=== PATIENT | female | born 1955 | race Caucasian/White ===

== ENCOUNTER 2016-12-28 00:52 | Emergency (ER) | payer MEDICARE, BC ==
[~2016-12-28] VITALS: Ht 165.1 cm; Wt 106.6 kg
[~2016-12-28 00:52] MED LIST: ASPI-630 PO; BUDE10.2 IH; GLUC1TAB26 PO; INSU100I13 SQ; LISI10TA2 PO; LORA10TA68 PO; MELO15TA23 PO; METF500T4 PO; MULT-208 PO; NIAC500T PO; ZAFI10TA5 PO
[2016-12-28 02:30] LABS: BILIRUBIN,URINE NEGATIVE (NEG); GLUCOSE,URINE NEGATIVE (NEG); NITRITE,URINE POSITIVE (NEG); PH,URINE 8.5; PROTEIN,URINE 100 mg/dL (NEG-TRACE); UROBILINOGEN,URINE 0.2 mg/dL (0.2 mg/dL)
[2016-12-28 02:44] LABS: BACTERIA,URINE MANY /HPF (0-FEW); RBC,URINE OCC /HPF (0-2); SQUAMOUS EPITHELIAL CELL,UR OCC /LPF
[2016-12-28] MEDS ORDERED: IV NORMAL SALINE 1000ML BAG 1,000 ML IV SCH (02:46)
[2016-12-28 02:55] LABS: BASO # 0.1 x10^3/uL (0.0-0.2); BASO % 1 % (0-3); EOS % 5 % (0-3); LYMPH # 0.8 x10^3/uL (1.0-4.8); LYMPH % 9 % (24-48); MEAN CORPUSCULAR HEMOGLOBIN 28 pg (25-35); MEAN CORPUSCULAR HGB CONC 32 g/dL (31-37); MEAN CORPUSCULAR VOLUME 86 fL (79-100); MONO % 12 % (0-9); NEUT % 74 % (31-73); PLATELET COUNT 294 x10^3/uL (140-400); RED BLOOD COUNT 4.29 x10^6/uL (3.50-5.40); RED CELL DISTRIBUTION WIDTH 16.4 % (11.5-14.5); WHITE BLOOD COUNT 9.4 x10^3/uL (4.0-11.0)
[2016-12-28] MEDS ORDERED: fentaNYL PF VIAL 100 MCG/2 ML VIAL IV PRN (03:00)
[2016-12-28 03:04] LABS: CALCIUM 9.3 mg/dL (8.5-10.1); CREATININE 1.2 mg/dL (0.6-1.0); GFR 45.8
[2016-12-28 03:10] LABS: ALBUMIN 3.3 g/dL (3.4-5.0); ALBUMIN/GLOBULIN RATIO 0.5 (1.0-1.7); TOTAL BILIRUBIN 0.3 mg/dL (0.2-1.0); TOTAL PROTEIN 9.4 g/dL (6.4-8.2)
[2016-12-28] MEDS ORDERED: ONDANSETRON PF 4 MG/2 ML VIAL. IV ONE (03:15)
--- NOTE | 2016-12-28 04:11 | RAD ---
PQRS Compliance Statement: One or more of the following individualized dose reduction techniques were utilized for this examination: 1. Automated exposure control 2. Adjustment of the mA and/or kV according to patient size 3. Use of iterative reconstruction technique CT ABDOMEN PELVIS WO CONTRAST Clinical Indication: RIGHT FLANK PAIN, HX OF RENAL STONES Comparison: None. Technique: Helical CT imaging of the abdomen and pelvis is performed without IV or oral contrast. Findings: There are groundglass opacities in the lung bases with mosaic attenuation pattern. Common etiologies small airways disease. Mild scarring or atelectasis and tiny calcified granulomas in the left lower lobe. Coronary artery disease. Cardiac size normal. Cholelithiasis. Liver is homogeneous. Spleen, pancreas, adrenal glands, and abdominal aorta caliber are normal. The left kidney contains a 3 mm nonobstructing calculus in the lower pole. There is no hydronephrosis. There is a 4 mm calculus in the lower pole of the right kidney. There is moderate to severe right hydroureteronephrosis secondary to a 7 x 4 mm calculus at the right ureterovesicular junction, image 175. No urinary bladder wall thickening. No obvious abnormality of the stomach. No dilated small bowel. There are a few sigmoid colon diverticula without inflammation. The appendix is normal. No colon wall thickening. There is mild retroperitoneal adenopathy. Uterus and ovaries unremarkable. No pelvic free fluid. Bilateral inguinal lymph nodes may be reactive. Chronic appearing compression fracture at the inferior endplate of T12. Posterior endplate spurring at T12/L1 does not contribute to high-grade central canal stenosis. There is degenerative spondylosis in the lumbar spine. IMPRESSION: 1. Moderate to severe right obstructive uropathy secondary to a 7 x 4 mm calculus at the right ureterovesicular junction. 2. Nonobstructing bilateral renal calculi. 3. Cholelithiasis. 4. Mild retroperitoneal adenopathy. Etiology is uncertain. Electronically signed by: Tin Fong MD (12/28/2016 4:08 AM) [facility]
[2016-12-28 05:43] VITALS: BP 147/76
--- NOTE | 2016-12-28 07:41 | RAD ---
Indication shortness of air. A single view of the chest was obtained. No prior imaging of the chest is available. Heart size is at the upper limits of normal. There is no gross congestive heart failure. No focal infiltrate is seen. An acute finding is not apparent on plain film. IMPRESSION: No acute or focal process seen in the chest
--- NOTE | 2016-12-28 08:02 | ED.ADGEN ---
Past Medical History Past Medical History: Asthma, Diabetes-Type II, High Cholesterol, Hypertension , Kidney Stone, Other Additional Past Medical Histor: T12 fracture, chronic back pain Past Surgical History: Other Additional Past Surgical Histo: wrist, sinus Alcohol Use: None Drug Use: None Adult General Chief Complaint Chief Complaint: FLANK PAIN HPI HPI Patient is a 61 year old man, history of type 2 diabetes mellitus, hypertension , chronic back pain, recurrent renal calculi, who presents emergency Department with complaint of right-sided flank and abdominal pain that began yesterday, associated with nausea and vomiting, which she states is consistent with her previous episodes of renal calculi. Patient states that previously she is unable to pass her calculi without intervention. States that she has been experiencing some discomfort and some hesitancy with urination today, denies any gross blood, any injuries, any chest pain, shortness breath, any fevers or chills. Patient noted to be hypoxic upon arrival to the emergency department, oxygen saturation of 89% room air, patient is not a history of hypoxemia denies any shortness of breath. Patient was placed 2 L nasal cannula, denies any cough , any recent travel or surgery, or other concerning findings. No swelling extremities. Review of Systems Review of Systems Constitutional: Denies fever or chills. [] Eyes: Denies change in visual acuity. [] HENT: Denies nasal congestion or sore throat. [] Respiratory: Denies cough or shortness of breath. [] Cardiovascular: Denies chest pain or edema. [] GI: Right lower quadrant abdominal pain and flank pain, nausea, vomiting, no bloody stools or diarrhea. : Dysuria, and hesitancy with urination.] Musculoskeletal: Denies back pain or joint pain. [] Integument: Denies rash. [] Neurologic: Denies headache, focal weakness or sensory changes. [] Endocrine: Denies polyuria or polydipsia. [] Lymphatic: Denies swollen glands. [] Psychiatric: Denies depression or anxiety. [] Current Medications Current Medications Current Medications Medications (Trade) Dose Ordered Sig/Colin Start Time Stop Time Status Last Admin Dose Admin Ceftriaxone Sodium 50 ml @ 100 mls/hr 1X ONCE 12/28/16 04:30 12/28/16 04:59 DC 12/28/16 04:31 100 MLS/HR Fentanyl Citrate (Fentanyl 2ml Vial) 50 mcg PRN Q15MIN PRN 12/28/16 03:00 12/28/16 06:45 DC 12/28/16 03:42 50 MCG Ondansetron HCl (Zofran) 4 mg 1X ONCE 12/28/16 03:15 12/28/16 03:16 DC 12/28/16 03:42 4 MG Sodium Chloride 1,000 ml @ 1,000 mls/hr Q1H 12/28/16 02:46 12/28/16 03:45 DC 12/28/16 03:42 1,000 MLS/HR Allergies Allergies Allergies Coded Allergies Type Severity Reaction Last Updated Verified bacitracin Allergy Intermediate "wounds don't heal" 10/24/15 No neomycin Allergy Intermediate "wounds don't heal" 10/24/15 No polymyxin B Allergy Intermediate "wounds don't heal" 10/24/15 No prednisone Allergy Intermediate rash 10/24/15 No Physical Exam Physical Exam Constitutional: Well developed, well nourished, no acute distress, non-toxic appearance. [] HENT: Normocephalic, atraumatic, bilateral external ears normal, oropharynx moist, no oral exudates, nose normal. [] Eyes: PERRLA, EOMI, conjunctiva normal, no discharge. [] Neck: Normal range of motion, no tenderness, supple, no stridor. [] Cardiovascular:Heart rate regular rhythm, no murmur, S1, S2, no rubs or gallops. [] Lungs & Thorax: Bilateral breath sounds clear to auscultation, no wheezing, rhonchi, rales. No chest or crepitus or tenderness. Nasal cannula is in place. [ ] Abdomen: Bowel sounds normal, soft, mild tenderness palpation in the right lower quadrant, no masses, no pulsatile masses. [] Skin: Warm, dry, no erythema, no rash. [] Back: No midline or paraspinal tenderness, mild right-sided CVA tenderness. Extremities: No tenderness, no cyanosis, no clubbing, ROM intact, no edema. [] Neurologic: Alert and oriented X 3, normal motor function, normal sensory function, no focal deficits noted. [] Psychologic: Affect normal, judgement normal, mood normal. [] Current Patient Data Vital Signs Vital Signs Date Time Temp Pulse Resp B/P (MAP) Pulse Ox O2 Delivery O2 Flow Rate FiO2 7/18/17 05:43 96 147/76 (99) 95 Nasal Cannula 2.0 12/28/16 03:42 18 12/28/16 02:20 98.3 98.3 Lab Values Laboratory Tests Test 12/28/16 01:50 12/28/16 02:35 Urine Collection Type Unknown Urine Color Yellow Urine Clarity Turbid Urine pH 8.5 Urine Specific Hurricane 1.015 Urine Protein 100 mg/dL (NEG-TRACE) Urine Glucose (UA) Negative mg/dL (NEG) Urine Ketones (Stick) Negative mg/dL (NEG) Urine Blood Moderate (NEG) Urine Nitrite Positive (NEG) Urine Bilirubin Negative (NEG) Urine Urobilinogen Dipstick 0.2 mg/dL (0.2 mg/dL) Urine Leukocyte Esterase Large (NEG) Urine RBC Occ /HPF (0-2) Urine WBC 11-20 /HPF (0-4) Urine Squamous Epithelial Cells Occ /LPF Urine Bacteria Many /HPF (0-FEW) Urine Mucus Slight /LPF White Blood Count 9.4 x10^3/uL (4.0-11.0) Red Blood Count 4.29 x10^6/uL (3.50-5.40) Hemoglobin 12.0 g/dL (12.0-15.5) Hematocrit 37.0 % (36.0-47.0) Mean Corpuscular Volume 86 fL (79-100) Mean Corpuscular Hemoglobin 28 pg (25-35) Mean Corpuscular Hemoglobin Concent 32 g/dL (31-37) Red Cell Distribution Width 16.4 % (11.5-14.5) H Platelet Count 294 x10^3/uL (140-400) Neutrophils (%) (Auto) 74 % (31-73) H Lymphocytes (%) (Auto) 9 % (24-48) L Monocytes (%) (Auto) 12 % (0-9) H Eosinophils (%) (Auto) 5 % (0-3) H Basophils (%) (Auto) 1 % (0-3) Neutrophils # (Auto) 7.0 x10^3uL (1.8-7.7) Lymphocytes # (Auto) 0.8 x10^3/uL (1.0-4.8) L Monocytes # (Auto) 1.1 x10^3/uL (0.0-1.1) Eosinophils # (Auto) 0.4 x10^3/uL (0.0-0.7) Basophils # (Auto) 0.1 x10^3/uL (0.0-0.2) Sodium Level 134 mmol/L (136-145) L Potassium Level 4.0 mmol/L (3.5-5.1) Chloride Level 100 mmol/L (98-107) Carbon Dioxide Level 27 mmol/L (21-32) Anion Gap 7 (6-14) Blood Urea Nitrogen 15 mg/dL (7-20) Creatinine 1.2 mg/dL (0.6-1.0) H Estimated GFR (Cockcroft-Gault) 45.8 BUN/Creatinine Ratio 13 (6-20) Glucose Level 127 mg/dL (70-99) H Calcium Level 9.3 mg/dL (8.5-10.1) Total Bilirubin 0.3 mg/dL (0.2-1.0) Aspartate Amino Transferase (AST) 15 U/L (15-37) Alanine Aminotransferase (ALT) 17 U/L (14-59) Alkaline Phosphatase 101 U/L (46-116) Total Protein 9.4 g/dL (6.4-8.2) H Albumin 3.3 g/dL (3.4-5.0) L Albumin/Globulin Ratio 0.5 (1.0-1.7) L Lipase 172 U/L (73-393) Laboratory Tests 12/28/16 02:35 Laboratory Tests 12/28/16 02:35 EKG EKG [] Radiology/Procedures Radiology/Procedures [][facility] [address] [place] [address] IMAGING REPORT Signed PATIENT: PETER CARRILLO ACCOUNT: [id number] : 1955 LOCATION: ER AGE: 61 SEX: F EXAM STATUS: REG ER ORD. PHYSICIAN: PAULETTE HERNANDEZ DO REASON: RIGHT Flank pain/n/v PROCEDURE: CT ABDOMEN PELVIS WO CONTRAST PQRS Compliance Statement: One or more of the following individualized dose reduction techniques were utilized for this examination: 1. Automated exposure control 2. Adjustment of the mA and/or kV according to patient size 3. Use of iterative reconstruction technique CT ABDOMEN PELVIS WO CONTRAST Clinical Indication: RIGHT FLANK PAIN, HX OF RENAL STONES Comparison: None. Technique: Helical CT imaging of the abdomen and pelvis is performed without IV or oral contrast. Findings: There are groundglass opacities in the lung bases with mosaic attenuation pattern. Common etiologies small airways disease. Mild scarring or atelectasis and tiny calcified granulomas in the left lower lobe. Coronary artery disease. Cardiac size normal. Cholelithiasis. Liver is homogeneous. Spleen, pancreas, adrenal glands, and abdominal aorta caliber are normal. The left kidney contains a 3 mm nonobstructing calculus in the lower pole. There is no hydronephrosis. There is a 4 mm calculus in the lower pole of the right kidney. There is moderate to severe right hydroureteronephrosis secondary to a 7 x 4 mm calculus at the right ureterovesicular junction, image 175. No urinary bladder wall thickening. No obvious abnormality of the stomach. No dilated small bowel. There are a few sigmoid colon diverticula without inflammation. The appendix is normal. No colon wall thickening. There is mild retroperitoneal adenopathy. Uterus and ovaries unremarkable. No pelvic free fluid. Bilateral inguinal lymph nodes may be reactive. Chronic appearing compression fracture at the inferior endplate of T12. Posterior endplate spurring at T12/L1 does not contribute to high-grade central canal stenosis. There is degenerative spondylosis in the lumbar spine. IMPRESSION: 1. Moderate to severe right obstructive uropathy secondary to a 7 x 4 mm calculus at the right ureterovesicular junction. 2. Nonobstructing bilateral renal calculi. 3. Cholelithiasis. 4. Mild retroperitoneal adenopathy. Etiology is uncertain. Electronically signed by: Tin Fong MD (12/28/2016 4:08 AM) [facility] DICTATED and SIGNED BY: TIN FONG MD DATE: 12/28/16 040 CC: CLAIR COHEN MD; PAULETTE HERNANDEZ DO ~ Impressions: [facility] [address] [place] [address] IMAGING REPORT Signed PATIENT: PETER CARRILLO ACCOUNT: [id number] : 1955 LOCATION: ER AGE: 61 SEX: F EXAM STATUS: DEP ER ORD. PHYSICIAN: PAULETTE HERNANDEZ DO REASON: SHORT OF BREATH PROCEDURE: PORTABLE CHEST 1V Indication shortness of air. A single view of the chest was obtained. No prior imaging of the chest is available. Heart size is at the upper limits of normal. There is no gross congestive heart failure. No focal infiltrate is seen. An acute finding is not apparent on plain film. IMPRESSION: No acute or focal process seen in the chest DICTATED and SIGNED BY: BRENDA GUTIERRES MD DATE: 12/28/16 0737 CC: CLAIR COHEN MD; PAULETTE HERNANDEZ DO ~ Course & Med Decision Making Course & Med Decision Making Pertinent Labs and Imaging studies reviewed. (See chart for details) After discussion, patient received analgesic, antiemetics, IV fluids, and CT of the abdomen and pelvis without contrast, along with laboratory studies. Patient noted to have a urinalysis that was nitrate positive with 20-4 WBCs and many bacteria, CT abdomen and pelvis revealed a 7 x 4 mm calculus at the UVJ on the right with moderate to severe hydronephrosis. I did discuss these findings with patient, she is resting more comfortably at this time after receiving antiemetics and analgesia in the ED. Discussed with patient that as we do not currently have urology coverage at [facility], the transfer for definitive treatment is necessary for appropriate management. Patient also initiated on ceftriaxone in the ED. Patient is agreeable with plan for additional symptom control, antibiotic management, and transfer. She is previously been seen at for her kidney stones, several years ago, although she cannot recall the name of urologist to treat her at that time. Transfer paperwork was completed. I spoke with nurse Eli on the transport line, relayed information as above, patient was accepted to the service of Dr. Hyman, of urology, with plan for stone removal performed in the morning. Patient remained nothing by mouth in the emergency department with plan for impending definitive management, symptoms controlled with antibiotics infused without issue. Patient transferred to EMS for transport to without issue. Dragon Disclaimer Dragon Disclaimer This electronic medical record was generated, in whole or in part, using a voice recognition dictation system. Departure Impression: Primary Impression: Hydronephrosis with renal calculous obstruction Additional Impression: Urinary tract infection Disposition: 05 TRANSFER OTHER Condition: IMPROVED Problem Qualifiers PAULETTE HERNANDEZ DO Dec 28, 2016 08:02
== END 2016-12-28 05:48 | disposition short-term general hospital (02) ==
LOC: ER 00:52
DX: N13.2 Hydronephrosis with renal and ureteral calculous obstruction (principal); N39.0 Urinary tract infection, site not specified; J45.909 Unspecified asthma, uncomplicated; E11.9 Type 2 diabetes mellitus without complications; E78.00 Pure hypercholesterolemia, unspecified; I10 Essential (primary) hypertension; G89.29 Other chronic pain; Z88.1 Allergy status to other antibiotic agents; Z88.8 Allergy status to other drugs, medicaments and biological substances
CPT/HCPCS: 36415; 71010; 74176; 80053; 81001; 83690; 85027; 87086; 96361; 96365; 96375; 99285; J0690; J2405; J3010; J7030

== ENCOUNTER 2017-04-27 15:22 | Emergency (ER) | payer MEDICARE, BC ==
[~2017-04-27] VITALS: Ht 165.1 cm; Wt 106.6 kg
[2017-04-27 15:31] VITALS: BP 144/85
--- NOTE | 2017-04-27 15:39 | PHYS DOC ---
Past Medical History Past Medical History: Asthma, Diabetes-Type II, High Cholesterol, Hypertension , Kidney Stone, Other Additional Past Medical Histor: T12 fracture, chronic back pain Past Surgical History: Other Additional Past Surgical Histo: wrist, sinus Alcohol Use: None Drug Use: None Adult General Chief Complaint Chief Complaint: MECHANICAL FALL HPI HPI Patient is a 62 year old female presents to the emergency department with a history of tripping over a urn in the yard hitting her face on the cement step. Patient states she had no LOC. She states she had a bloody nose and left maxillofacial pain. She denies visual changes, denies neck pain. She does state she takes a ASA daily. Review of Systems Review of Systems Constitutional: Denies fever or chills [] Eyes: Denies change in visual acuity, redness, or eye pain [] HENT: Denies nasal congestion or sore throat. C/o nasal pain with left facial pain and discomfort [] Respiratory: Denies cough or shortness of breath [] Cardiovascular: No additional information not addressed in HPI [] GI: Denies abdominal pain, nausea, vomiting, bloody stools or diarrhea [] : Denies dysuria or hematuria [] Musculoskeletal: Denies back pain or joint pain [] Integument: Denies rash or skin lesions [] Neurologic: Denies headache, focal weakness or sensory changes [] Endocrine: Denies polyuria or polydipsia [] All other systems were reviewed and found to be within normal limits, except as documented in this note. Allergies Allergies Allergies Coded Allergies Type Severity Reaction Last Updated Verified bacitracin Allergy Intermediate "wounds don't heal" 10/24/15 No neomycin Allergy Intermediate "wounds don't heal" 10/24/15 No polymyxin B Allergy Intermediate "wounds don't heal" 10/24/15 No prednisone Allergy Intermediate rash 10/24/15 No Physical Exam Physical Exam Constitutional: Well developed, well nourished, no acute distress, non-toxic appearance. [] HENT: Normocephalic, atraumatic, bilateral external ears normal, oropharynx moist, no oral exudates, nose normal. Bilateral TM normal, patient with left maxillary pain with redness noted. Nose with tenderness and redness noted, Bilateral nares appear swollen, no bleeding noted currently. Eyes: PERRLA, EOMI, conjunctiva normal, no discharge. [] Neck: Normal range of motion, no tenderness, supple, no stridor. [] Cardiovascular:Heart rate regular rhythm, no murmur [] Lungs & Thorax: Bilateral breath sounds clear to auscultation [] Skin: Warm, dry, no erythema, no rash. [] Back: No cervical spine, thoracic spine or lumbar spine tenderness, no crepitus , no deformity and no step-offs noted. No CVA tenderness. [] Extremities: No tenderness, no cyanosis, no clubbing, ROM intact, no edema. [] Neurologic: Alert and oriented X 3, normal motor function, normal sensory function, no focal deficits noted. [] Psychologic: Affect normal, judgement normal, mood normal. [] Current Patient Data Vital Signs Vital Signs Date Time Temp Pulse Resp B/P (MAP) Pulse Ox O2 Delivery O2 Flow Rate FiO2 04/27/17 15:31 98.1 110 20 144/85 (104) 94 Room Air 98.1 EKG EKG [] Radiology/Procedures Radiology/Procedures [facility] [address] [place] [address] IMAGING REPORT Signed PATIENT: PETER CARRILLO ACCOUNT: [id number] : 1955 LOCATION: ER AGE: 62 SEX: F EXAM STATUS: REG ER ORD. PHYSICIAN: HIRAM DISLA APRN REASON: fall hitting face on cement step PROCEDURE: CT HEAD AND CERVICAL SPINE WO CT of the head without contrast, 04/27/2017: History: Fall, head trauma Comparison is made to a study from 08/12/2014. The ventricles are within normal limits in size. There is no shift of the midline structures. There is no evidence of acute intracranial hemorrhage or mass effect. There is calcific plaquing of the distal internal carotid and vertebrobasilar arteries. IMPRESSION: No acute intracranial abnormality is detected. CT of the cervical spine without contrast, 04/27/2017: There is mild disc space narrowing and moderate marginal spurring at C5-6. There are moderate degenerative changes involving scattered facet joints bilaterally. A minimal anterolisthesis at C4-5 appears to be due to facet joint arthropathy. The combination of findings is causing mild central spinal stenosis at C5-6. No acute fracture or dislocation is identified. IMPRESSION: 1. Moderate multilevel degenerative change. 2. No acute bony abnormality is detected. PQRS Compliance Statement: One or more of the following individualized dose reduction techniques were utilized for this examination: 1. Automated exposure control 2. Adjustment of the mA and/or kV according to patient size 3. Use of iterative reconstruction technique DICTATED and SIGNED BY: CHRISTEL WOLF MD DATE: 04/27/17 1615 CC: HIRAM DISLA APRN; CLAIR COHEN MD ~ [facility] [address] [place] [address] IMAGING REPORT Signed PATIENT: PETER CARRILLO ACCOUNT: [id number] : 1955 LOCATION: ER AGE: 62 SEX: F EXAM STATUS: REG ER ORD. PHYSICIAN: HIRAM DISLA APRN REASON: fall hitting face on cement step PROCEDURE: CT MAXILLOFACIAL WO CONTRAST CT of the facial bones without contrast, 04/27/2017: History: Fall, pain Noncontrast scans were obtained with multiplanar reconstructions produced. There is a nasal bone fracture, probably recent. There is associated partial opacification of the nasal cavity. No other fracture is identified. There is mild mucosal thickening in the maxillary and ethmoid sinuses. No free fluid is evident in the sinuses. The orbital contents are unremarkable. Incidental note is made of multiple tiny parotid gland calcifications bilaterally. IMPRESSION: 1. Nasal bone fracture, probably recent. 2. Mild mucosal thickening in the maxillary and ethmoid sinuses. 3. Bilateral parotid calculi. PQRS Compliance Statement: One or more of the following individualized dose reduction techniques were utilized for this examination: 1. Automated exposure control 2. Adjustment of the mA and/or kV according to patient size 3. Use of iterative reconstruction technique DICTATED and SIGNED BY: CHRISTEL WOLF MD DATE: 04/27/17 162 CC: HIRAM DISLA APRN; CLAIR COHEN MD ~ [] Course & Med Decision Making Course & Med Decision Making Pertinent Labs and Imaging studies reviewed. (See chart for details) CT scan of head, cervical spine and maxillofacial ordered, patent was offered pain medication with patient refusing at the current time. CT scan of the head was negative cervical spine was negative. CT scan of the maxillofacial identified a nasal fracture. Patient was provided with these results. Patient will be discharged home in stable condition and she'll be provided with hydrocodone for severe pain and discomfort. She was instructed this medication will cause drowsiness did not take any regular oriented. Patient was recommended ice packs on 20 minutes off several times a day. Patient was also encouraged to sleep with her head elevated. Recommended she follow up with ENT within the next week. Signs symptoms return back to emergency department provided. I've spoken with the patient and/or caregivers. I've explained the patient's condition, diagnosis and treatment plan based on information available to me at this time. I've answered the patient's and/or caregivers questions and addressed any concerns. The patient and/or caregivers have a good understanding the patient's diagnosis, condition and treatment plan as can be expected at this point. Vital signs have been stabilized. The patient's condition is stable for discharge from the emergency department. The patient will pursue further outpatient evaluation with her primary care provider or other designated consulting physician as outlined in the discharge instructions. Patient and/or caregivers are agreeable to this plan of care and follow-up instructions have been explained in detail. The patient and/or caregivers have received these instructions in written format and expressed understanding of these discharge instructions. The patient and her caregivers are aware that if any significant change in condition or worsening of symptoms should prompt him to immediately return to this of the closest emergency department. If an emergent department is not readily available I would encourage him to call 911. Kris Disclaimer Dragon Disclaimer This electronic medical record was generated, in whole or in part, using a voice recognition dictation system. Departure Departure Impression: Primary Impression: Nasal fracture Additional Impression: Fall Disposition: HOME, SELF-CARE Condition: STABLE Referrals: CLAIR COHEN MD (PCP) Patient Instructions: Fall Prevention and Home Safety, [id number], Nasal Fracture, [id number] Additional Instructions: Activity as tolerated. Medications as prescribed. Hydrocodone will cause drowsiness do not take any be alert and oriented. Did not take any extra Tylenol with hydrocodone. Sleep with her head elevated. Ice packs on 20 minutes off treatment several times a day. Follow-up with ENT within the week. You may call at [phone] or no that you are a patient from the [facility] and need to schedule an appointment. Return back to the emergency department for signs and symptoms become worse. Scripts Hydrocodone/Apap 5-325 (NORCO 5-325 TABLET) 1 Each Tablet 1 TAB PO PRN Q6HRS Y for PAIN, #20 TAB 0 Refills Prov: HIRAM DISLA APRN 04/27/17 Problem Qualifiers Primary Impression: Nasal fracture Encounter type: initial encounter Fracture type: closed Qualified Codes: S02.2XXA - Fracture of nasal bones, initial encounter for closed fracture Additional Impression: Fall Encounter type: initial encounter Qualified Codes: W19.XXXA - Unspecified fall, initial encounter HIRAM DISLA APRN Apr 27, 2017 15:39
--- NOTE | 2017-04-27 16:26 | RAD ---
CT of the head without contrast, 04/27/2017: History: Fall, head trauma Comparison is made to a study from 08/12/2014. The ventricles are within normal limits in size. There is no shift of the midline structures. There is no evidence of acute intracranial hemorrhage or mass effect. There is calcific plaquing of the distal internal carotid and vertebrobasilar arteries. IMPRESSION: No acute intracranial abnormality is detected. CT of the cervical spine without contrast, 04/27/2017: There is mild disc space narrowing and moderate marginal spurring at C5-6. There are moderate degenerative changes involving scattered facet joints bilaterally. A minimal anterolisthesis at C4-5 appears to be due to facet joint arthropathy. The combination of findings is causing mild central spinal stenosis at C5-6. No acute fracture or dislocation is identified. IMPRESSION: 1. Moderate multilevel degenerative change. 2. No acute bony abnormality is detected. PQRS Compliance Statement: One or more of the following individualized dose reduction techniques were utilized for this examination: 1. Automated exposure control 2. Adjustment of the mA and/or kV according to patient size 3. Use of iterative reconstruction technique
--- NOTE | 2017-04-27 16:33 | RAD ---
CT of the facial bones without contrast, 04/27/2017: History: Fall, pain Noncontrast scans were obtained with multiplanar reconstructions produced. There is a nasal bone fracture, probably recent. There is associated partial opacification of the nasal cavity. No other fracture is identified. There is mild mucosal thickening in the maxillary and ethmoid sinuses. No free fluid is evident in the sinuses. The orbital contents are unremarkable. Incidental note is made of multiple tiny parotid gland calcifications bilaterally. IMPRESSION: 1. Nasal bone fracture, probably recent. 2. Mild mucosal thickening in the maxillary and ethmoid sinuses. 3. Bilateral parotid calculi. PQRS Compliance Statement: One or more of the following individualized dose reduction techniques were utilized for this examination: 1. Automated exposure control 2. Adjustment of the mA and/or kV according to patient size 3. Use of iterative reconstruction technique
[2017-04-27] MEDS ORDERED: HYDR-971 PO (16:44)
[2017-04-27] MEDS ORDERED: HYDROcodone/APAP 5/325MG 1 TAB TABLET PO ONE (16:45)
== END 2017-04-27 16:54 | disposition home or self-care (01) ==
LOC: ER 15:22
DX: S02.2XXA Fracture of nasal bones, initial encounter for closed fracture (principal); E11.9 Type 2 diabetes mellitus without complications; E78.00 Pure hypercholesterolemia, unspecified; I10 Essential (primary) hypertension; G89.29 Other chronic pain; J45.909 Unspecified asthma, uncomplicated; Z87.442 Personal history of urinary calculi; Z88.1 Allergy status to other antibiotic agents; Z88.8 Allergy status to other drugs, medicaments and biological substances; W01.0XXA Fall on same level from slipping, tripping and stumbling without subsequent striking against object, initial encounter; Y99.8 Other external cause status; Y93.89 Activity, other specified; Y92.89 Other specified places as the place of occurrence of the external cause
CPT/HCPCS: 70450; 70486; 72125; 99284-25

== ENCOUNTER → 2020-07-11 | Outpatient (CLI) | payer MEDICARE, BC ==
[~2020-07-11] MED LIST changes: +HYDR-3164 PO; +METF500T16 PO; -METF500T4 PO
--- NOTE | 2020-07-11 11:08 | RAD ---
INDICATION: Reason: LT LEG EDEMA / Spl. Instructions: / History: COMPARISON: None. TECHNIQUE: Grayscale, color and doppler ultrasound images were obtained of the left lower extremity v enous vasculature. LEFT: No thrombus identified in the common femoral vein, femoral vein, popliteal vein or visualized calf ve ins. There is some limitation secondary to overlying soft tissue structures obscuring. IMPRESSION: * No thrombus identified in deep venous system of the left lower extremity. Limited evaluation seco ndary to soft tissue structures obscuring. Electronically signed by: Sal Latham MD (07/11/2020 11:06 AM) [id number]
== END ==
LOC: US 10:22
PROVIDERS: ATTEND Family Medicine
DX: R60.0 Localized edema (principal)
CPT/HCPCS: 93971